=== PATIENT | male | born 1990 | race Caucasian/White ===

== ENCOUNTER 2021-06-15 11:08 | Emergency (ER) | payer OTHER ==
[~2021-06-15] VITALS: Ht 177.8 cm; Wt 70.0 kg
[2021-06-15] MEDS ORDERED: SODIUM CHLORIDE 0.9% 1,000 ML IV ONE (13:30)
[2021-06-15] MEDS ORDERED: CLONIDINE 0.1MG TABLET PO NR (13:45)
[2021-06-15 15:33] LABS: HEMATOCRIT. 42.5 % (42.0-52.0); HEMOGLOBIN. 13.7 g/dL (14.0-18.0); MEAN CORPUSCULAR HEMOGLOBIN 28.3 pg (28.0-32.0); MEAN CORPUSCULAR VOLUME 87.5 fL (80.0-94.0); MEAN PLATELET VOLUME 8.4 fl (7.4-10.4); PLATELET 318 x1000/uL (130-400); RED BLOOD CELL COUNT 4.86 mill/uL (4.7-6.1)
[2021-06-15 15:42] LABS: CHLORIDE 103 mEq/L (98-107)
[2021-06-15 15:47] LABS: ETHANOL BLOOD < 10 mg/dL
[2021-06-15 17:22] LABS: CLARITY URINE CLEAR (CLEAR); COLOR URINE YELLOW (YELLOW); KETONES URINE 3+ (NEGATIVE); LEUKOCYTE ESTERASE URINE NEGATIVE (NEGATIVE); NITRITE URINE NEGATIVE (NEGATIVE); OCCULT BLOOD URINE 3+ (NEGATIVE); PROTEIN URINE 3+ (NEGATIVE); SPECIFIC GRAVITY URINE 1.016 (1.005-1.030); UROBILINOGEN URINE 0.2 E.U./dL (0.2-1.0)
[2021-06-15 18:06] LABS: *AMPHETAMINES SCREEN URINE NEGATIVE (NEGATIVE); *BARBITURATES SCREEN URINE NEGATIVE (NEGATIVE); *BENZODIAZEPINES SCREEN URINE NEGATIVE (NEGATIVE); *COCAINE SCREEN URINE NEGATIVE (NEGATIVE); METHADONE URINE SCREEN NEGATIVE (NEGATIVE)
[2021-06-15 18:07] LABS: CANNABINOID URINE SCREEN PRESUMTIVE POSITIVE (NEGATIVE); OPIATES URINE SCREEN NEGATIVE (NEGATIVE); PHENCYCLIDINE URINE SCREEN NEGATIVE (NEGATIVE)
[2021-06-15 18:37] LABS: PLATELET ESTIMATE NORMAL
[2021-06-15 18:46] VITALS: BP 138/80
== END 2021-06-15 19:23 | disposition home or self-care (01) ==
LOC: ER 11:08
DX: F11.23 Opioid dependence with withdrawal (principal); F17.200 Nicotine dependence, unspecified, uncomplicated; F12.10 Cannabis abuse, uncomplicated; Z13.9 Encounter for screening, unspecified; Z98.890 Other specified postprocedural states
CPT/HCPCS: 36415; 80053; 80305; 80320; 81003; 85025; 96360; 96361; 99283; J7030; G0480